=== PATIENT | male | born 1955 | race Caucasian/White ===

== ENCOUNTER 2016-05-30 08:47 | Emergency (ER) | payer OTHER ==
[~2016-05-30] VITALS: Ht 180.3 cm; Wt 95.5 kg
[2016-05-30 08:49] VITALS: BP 179/91; PULSE 51; RESP 15; O2SAT 97
--- NOTE | 2016-05-30 09:08 | ED.REPORT ---
HPI-Abd Pain M 40 and Over Date of Service May 30, 2016 ED Provider: Sunday Burk MD 60 year old male presents to the ER accompanied by his complaining of three days of left low back pain, worsening markedly this morning upon awakening. Pain wraps around to the left lower quadrant, and seemed to be mildly relieved with bowel movements. He states that he initially began feeling unwell several days ago after eating dinner, which has since progressed to his current back pain. Associated symptoms include hematuria, nausea, vomiting, and diaphoresis. Patient denies chest pain, cough, and shortness of breath. He was seen at urgent care and referred to the ER. Nursing Notes Stated Complaint: L FLANK PAIN Chief Complaint: Male Abdominal Pain Nursing Notes Reviewed: Yes Allergies: Coded Allergies: bee venom protein (honey bee) (Verified Allergy, Severe, 05/30/16) General Time Seen by MD: 09:08 Chief Complaint Flank pain left Hx Obtained From: Patient Arrived By: Walk-in Sudden in Onset?: No Onset Occurred: 3 days ago Symptom Duration: Waxes and wanes Progression since Onset: Waxes and wanes Location: : Back: Flank left Quality: Painful, Sharp Radiation: : LLQ Severity: Current: Moderate Severity: Maximum: Moderate Associated with: Reports: Hematuria, Nausea, Vomiting Similar Sx Previous: No Past Medical History Past Medical History [place] (05/29/2015) Bee Allergy, non-deadly Reports: Hyperlipidemia, Denies: Diabetes mellitus, Hypertension Past Surgical History Stent placement x3 - (05/29/2015) Family History Grandfather [place] Smoking History Current Some Day Smoker Social History Alcohol Use: "Social" Ambulatory Status Independent Review of Systems Constitutional: Denies: Chills, Fever Respiratory: Denies: Non-productive cough, Shortness of breath Cardiovascular: Denies: Chest pain GI: Reports: Abdominal pain (LLQ), Nausea, Vomiting, Denies: Diarrhea, Hematemesis, Hematochezia Male: Reports Flank pain (Left), Reports Hematuria Complete sys rev & neg: except as marked. Skin: Reports Diaphoresis Physical Exam Initial Vital Signs Vital Signs (First) Date Time Temp Pulse Resp B/P Pulse Ox O2 Delivery O2 Flow Rate FiO2 05/30/16 08:49 35.2 51 15 179/91 97 Room Air Initial VS: Reviewed Head / Eyes: Atraumatic, Normocephalic Neck: Supple, Non-tender, Full range of motion Extremities: Vascular intact, Neuro intact, No swelling, No tenderness Skin: Warm, Dry, No cyanosis Neurologic: Alert, Oriented, Nonfocal General/Constitutional: Awake, Alert, Well developed, Well nourished Abdomen: Soft, No guarding, No rebound, No distention Tenderness/Guarding/Rebound: Positive: Tender LLQ... (Mild) Back: Full range of motion, No midline vertebral tend Mild Left CVA tenderness Interpretation & Diagnostics Lab Results Interpretation Result Diagram: 05/30/16 0936 05/30/16 0936 Test 05/30/16 09:36 White Blood Count 12.1th/mm3 (3.8-10.1) Red Blood Count 4.94mil/mm3 (4.40-5.80) Hemoglobin 14.7g/dL (13.8-17.2) Hematocrit 43.5% (41.0-50.0) Mean Corpuscular Volume 88.1fL (81-100) Mean Corpuscular Hemoglobin 29.8pg (27.0-35.0) Mean Corpuscular Hemoglobin Concent 33.8% (32.0-37.0) Red Cell Distribution Width 13.3% (12.3-15.4) Platelet Count 257bil/L (150-400) Neutrophils (%) (Auto) 75.4% (40-74) Lymphocytes (%) (Auto) 17.9% (14-46) Monocytes (%) (Auto) 5.4% (4-12) Eosinophils (%) (Auto) 0.7% (0-5) Basophils (%) (Auto) 0.3% (0-3) Sodium Level 145mEq/L (134-144) Potassium Level 4.5mEq/L (3.5-5.2) Chloride Level 107mEq/L (97-108) Carbon Dioxide Level 22mmol/L (18-29) Blood Urea Nitrogen 22mg/dL (8-27) Creatinine 0.93mg/dL (0.76-1.27) Estimat Glomerular Filtration Rate 88mL/min (>59) Glucose Level 110mg/dL (60-99) Calcium Level 9.2mg/dL (8.5-10.1) Total Bilirubin 0.6mg/dL (0.0-1.2) Aspartate Amino Transf (AST/SGOT) 35U/L (0-50) Alanine Aminotransferase (ALT/SGPT) 45U/L (0-44) Alkaline Phosphatase 107U/L (25-160) Total Protein 8.0g/dL (6.4-8.4) Albumin 4.7g/dL (3.4-5.0) CT Abd / Pelvis Interpretation IMPRESSION: 1. 2 mm stone in the proximal left ureter causing [id number] hydronephrosis. 2. 1-2 mm nonobstructing stone in the superior pole of the left kidney. 3. Cholelithiasis. 4. Colonic diverticulosis without evidence of diverticulitis. 5. Atherosclerosis including the visualized coronary vasculature. Dictated by: Park Marinelli MD, PhD on 05/30/2016 at 10:00 Approved by: Park Marinelli MD, PhD on 05/30/2016 at 10:06 Study type: Abdominal CT no contrast Interpretation / Wet Read by: Interpret - Radiologist, Discussed w radiologist Re-Eval/Medical Decision Source of Hx: Old records Time of Eval: 09:34 Re-Evaluation/Progress Note: Discussed physical examination findings and updated patient on the plan of care. Time of Eval: 10:31 Re-Evaluation/Progress Note: Discussed CT results and plan to discharge. Patient is amenable to the plan. Return precautions given. All other questions addressed. Consultation : Referral / Consult Name: Park Marinelli MD, PhD Consulted With: On-call physician (Radiology) Call Returned at: 10:01 Note: Dr. Marinelli, Radiology, called to discuss CT results. Counseled Regarding: Diagnosis, Lab results, Need for follow-up, When/why to return to ED Discharge & Departure Primary Impression: Ureterolithiasis Disposition: Home Vital Signs - All Vital Signs Date Time Temp Pulse Resp B/P Pulse Ox O2 Delivery O2 Flow Rate FiO2 05/30/16 08:49 35.2 51 15 179/91 97 Room Air )( All Prior VS Reviewed: Yes Condition: Stable Patient Instructions: Renal Colic (DC) Additional Instructions: Your CT scan revealed a kidney stone (2 mm) in your proximal left ureter. The stone should pass in the next couple days, perhaps as soon as the next few hours. Drink plenty of fluids. Take 800mg ibuprofen every 8 hours for pain. Use hydrocodone/APAP sparingly as needed for severe pain. Do not drive, consume alcohol, or go to work while taking hydrocodone. Take Zofran as directed for nausea. Strain your urine every time you urinate with the tools provided. Bring the stone to a clinic visit to discuss further evaluation with Dr. Timmons. Return to the ER for uncontrollable pain, fever, shaking chills, or other concerning symptoms. Referrals: Glenn Timmons MD (PCP) Scribe Attestation Portions of this note were transcribed by Azam Adams. I, Dr. Burk, personally performed the history, physical exam and medical decision-making; I reviewed and confirmed the accuracy of the information in the transcribed note. Signed by: Wolf Fernandez, 05/30/2016 and 10:39 copies to: Glenn Timmons MD, Kirk H MD May 30, 2016 09:08 AZAM ADAMS May 30, 2016 09:16
[2016-05-30] MEDS ORDERED: 0.9% Sodium Chloride 1,000 ML IV ONE (09:12)
[2016-05-30] MEDS ORDERED: HYDROmorphone 1 mg/mL Inj IVPUSH PRN (09:15)
[2016-05-30] MEDS ORDERED: Ondansetron 2 mg/mL 2 mL Inj IVPUSH PRN (09:15)
[2016-05-30 09:46] LABS: BASOPHILS % (AUTO) 0.3 % (0-3); EOSINOPHILS % (AUTO) 0.7 % (0-5); MONOCYTES % (AUTO) 5.4 % (4-12); Mean Corpuscular Hemoglobin 29.8 pg (27.0-35.0); Mean Corpuscular Volume 88.1 fL (81-100); NEUTROPHILS % (AUTO) 75.4 % (40-74); Platelet Count 257 bil/L (150-400)
--- NOTE | 2016-05-30 10:07 | DRSVH ---
PROCEDURE: CT KUB ([id number]) INDICATIONS: Left FLANK PAIN TECHNIQUE: Noncontrast 5 mm thick sections acquired from the diaphragms to the symphysis. 5 mm thick coronal an d sagittal reformats were then performed. For radiation dose reduction, the following was used: aut omated exposure control, adjustment of mA and/or kV according to patient size. COMPARISON: None. FINDINGS: Image quality: Excellent. Lung bases: Lung bases are clear. Heart size is normal. Atherosclerotic calcifications are noted vi sualized coronary vasculature. Urinary system: Both kidneys are normal in size. There is a 2 mm stone in the proximal left ureter c ausing mild to moderate left-sided hydronephrosis. There is a 1-2 mm nonobstructing stone in the supe rior pole of the left kidney. No right sided renal stones or hydronephrosis. Hypoattenuating lesion n oted in the superior pole of the right kidney which may represent a cyst, however lesion cannot be de finitively characterized without the benefit of intravenous contrast. Bladder wall thickness is carlos l; no calcified bladder stones. Other solid organs: Liver and spleen are normal in size. Gallbladder contains multiple gallstones. Pancreas is normal in contours. No adrenal nodules. Peritoneum and bowel: Unenhanced bowel loops demonstrate normal wall thickness and caliber. No free fluid or air. Nodes and vessels: No retroperitoneal or mesenteric adenopathy by size criteria. Aorta and inferior vena cava are normal in caliber. The appendix is normal. Abdominal wall: No ventral hernias. Pelvis: No free pelvic fluid. No adenopathy. Small fat containing right inguinal hernia noted. Bones: No suspicious bony lesions. No vertebral body compression fractures. Spinal degenerative dis ease and facet arthropathy are noted. IMPRESSION: 1. 2 mm stone in the proximal left ureter causing [id number] hydronephrosis. 2. 1-2 mm nonobstructing stone in the superior pole of the left kidney. 3. Cholelithiasis. 4. Colonic diverticulosis without evidence of diverticulitis. 5. Atherosclerosis including the visualized coronary vasculature. Dictated by: Park Marinelli MD, PhD on 05/30/2016 at 10:00 Approved by: Park Marinelli MD, PhD on 05/30/2016 at 10:06
[2016-05-30] MEDS ORDERED: ONDA4TAB9 PO (10:45)
[2016-05-30] MEDS ORDERED: HYDR-4003 PO (10:45)
[2016-05-30 11:06] VITALS: BP 154/82; PULSE 64; RESP 16; O2SAT 99
== END 2016-05-30 11:08 | disposition home or self-care (01) ==
LOC: SED 08:47
DX: N20.1 Calculus of ureter (principal); E78.5 Hyperlipidemia, unspecified; F17.200 Nicotine dependence, unspecified, uncomplicated; Z91.030 Bee allergy status
CPT/HCPCS: 36415; 74176; 80053; 85025; 96361; 96374; 96375; 99285; J1170; J1885; J2405; J7030